=== PATIENT | male | born 1960 | race African-American/Black ===

== ENCOUNTER 2017-02-17 15:35 | Emergency (ER) | payer MEDICAID, OTHER ==
[~2017-02-17] VITALS: Ht 180.3 cm; Wt 95.0 kg
[~2017-02-17 15:35] MED LIST: AMLO10TA80 PO; ASPI-1035 PO; ENAL1TAB10 PO; GABA-531 PO; NAPR-681 PO; PROP10TA10 GT
[2017-02-17] MEDS ORDERED: SODIUM CHLORIDE 0.9% 1,000 ML IV ONE (17:28)
[2017-02-17 17:41] LABS: CLARITY URINE CLEAR (CLEAR); COLOR URINE YELLOW (YELLOW); GLUCOSE URINE NEGATIVE (NEGATIVE); KETONES URINE NEGATIVE (NEGATIVE); LEUKOCYTE ESTERASE URINE NEGATIVE (NEGATIVE); NITRITE URINE NEGATIVE (NEGATIVE); OCCULT BLOOD URINE NEGATIVE (NEGATIVE); PH URINE 5.5 (4.5-8.0); PROTEIN URINE NEGATIVE (NEGATIVE); SPECIFIC GRAVITY URINE 1.009 (1.005-1.030)
[2017-02-17 18:10] LABS: HEMATOCRIT. 48.8 % (42.0-52.0); HEMOGLOBIN. 16.2 g/dL (14.0-18.0); MEAN CORPUSCULAR HEMOGLOBIN 29.2 pg (28.0-32.0); MEAN CORPUSCULAR VOLUME 87.8 fL (80.0-94.0); MEAN PLATELET VOLUME 8.3 fl (7.4-10.4); PLATELET 215 x1000/uL (130-400); RED BLOOD CELL COUNT 5.55 mill/uL (4.7-6.1); RED CELL DISTRIBUTION WIDTH 14.6 % (11.6-14.6)
[2017-02-17 18:15] LABS: CHLORIDE 98 mEq/L (98-107); PROTHROMBIN TIME 10.7 sec
[2017-02-17 18:19] LABS: CARBON DIOXIDE 32 mEq/L (21-32)
[2017-02-17 18:24] LABS: TROPONIN I < 0.02 ng/mL (0.00-0.04)
[2017-02-17 18:30] LABS: PLATELET ESTIMATE NORMAL
[2017-02-17 19:25] VITALS: BP 132/96
[2017-02-17] MEDS ORDERED: ONDANSETRON HCL 4MG/2ML VIAL IV ONE (19:45)
== END 2017-02-17 21:07 | disposition home or self-care (01) ==
LOC: ER 19:13 → CANBEDREQ 21:13
DX: R55 Syncope and collapse (principal); E86.0 Dehydration; R35.0 Frequency of micturition; R06.02 Shortness of breath; E11.9 Type 2 diabetes mellitus without complications; I10 Essential (primary) hypertension
CPT/HCPCS: 36415; 70450; 71010; 80053; 81003; 84484; 85025; 85610; 93005; 96361; 96374; 99285; J2405; J7030

== ENCOUNTER 2019-03-21 12:23 | Emergency (ER) | payer MEDICAID, OTHER ==
[~2019-03-21] VITALS: Ht 177.8 cm; Wt 90.0 kg
[~2019-03-21 12:23] MED LIST changes: -ASPI-1035 PO; +ASPI-1393 PO
[2019-03-21] MEDS ORDERED: SODIUM CHLORIDE 0.9% 1,000 ML IV ONE (12:44)
[2019-03-21 13:22] LABS: HEMATOCRIT. 49.1 % (42.0-52.0); HEMOGLOBIN. 16.3 g/dL (14.0-18.0); MEAN CORPUSCULAR HEMOGLOBIN 29.7 pg (28.0-32.0); MEAN CORPUSCULAR VOLUME 89.6 fL (80.0-94.0); MEAN PLATELET VOLUME 8.4 fl (7.4-10.4); PLATELET 224 x1000/uL (130-400); RED BLOOD CELL COUNT 5.49 mill/uL (4.7-6.1); RED CELL DISTRIBUTION WIDTH 14.7 % (11.6-14.6)
[2019-03-21 13:33] LABS: ETHANOL BLOOD < 10 mg/dL
[2019-03-21 13:43] LABS: CHLORIDE 103 mEq/L (98-107)
[2019-03-21 13:47] LABS: PLATELET ESTIMATE NORMAL
[2019-03-21] MEDS ORDERED: ASPIRIN 325MG EC TABLET PO ONE (15:15)
[2019-03-21 15:28] LABS: CLARITY URINE CLEAR (CLEAR); COLOR URINE YELLOW (YELLOW); KETONES URINE NEGATIVE (NEGATIVE); LEUKOCYTE ESTERASE URINE NEGATIVE (NEGATIVE); NITRITE URINE NEGATIVE (NEGATIVE); OCCULT BLOOD URINE NEGATIVE (NEGATIVE); PROTEIN URINE NEGATIVE (NEGATIVE); SPECIFIC GRAVITY URINE 1.011 (1.005-1.030)
[2019-03-21 17:00] VITALS: BP 129/70
== END 2019-03-21 18:06 | disposition short-term general hospital (02) ==
LOC: ER 12:23 → CANBEDREQ 16:25 → ER 18:06
DX: R55 Syncope and collapse (principal); E78.00 Pure hypercholesterolemia, unspecified; I10 Essential (primary) hypertension; E11.9 Type 2 diabetes mellitus without complications; Z79.82 Long term (current) use of aspirin
CPT/HCPCS: 36415; 71045; 80053; 80320; 81003; 83880; 84484; 85025; 93005; 96360; 99285; J7030; G0480

== ENCOUNTER 2019-08-31 12:06 | Emergency (ER) | payer MEDICARE, MEDICAID ==
[~2019-08-31] VITALS: Ht 180.3 cm; Wt 112.0 kg
[2019-08-31 15:15] VITALS: BP 148/78
== END 2019-08-31 15:15 | disposition home or self-care (01) ==
LOC: ER 12:06
DX: S39.012A Strain of muscle, fascia and tendon of lower back, initial encounter (principal); X58.XXXA Exposure to other specified factors, initial encounter; Y93.89 Activity, other specified; Y92.89 Other specified places as the place of occurrence of the external cause; Y99.8 Other external cause status; E11.40 Type 2 diabetes mellitus with diabetic neuropathy, unspecified; E78.00 Pure hypercholesterolemia, unspecified; I10 Essential (primary) hypertension; Z90.49 Acquired absence of other specified parts of digestive tract; Z98.890 Other specified postprocedural states; Z87.19 Personal history of other diseases of the digestive system; Z79.82 Long term (current) use of aspirin; Z79.899 Other long term (current) drug therapy
CPT/HCPCS: 99282

== ENCOUNTER 2019-10-22 03:08 | Inpatient (IN) | payer OTHER ==
[~2019-10-22] VITALS: Ht 180.3 cm; Wt 107.5 kg
[~2019-10-22 03:08] MED LIST changes: -ASPI-1393 PO; +ASPI-1497 PO; -PROP10TA10 GT; +PROP10TA10 PO
[2019-10-22] MEDS ORDERED: ONDANSETRON HCL 4MG/2ML INJ IV STA (03:59)
[2019-10-22] MEDS ORDERED: SODIUM CHLORIDE 0.9% 1,000 ML IV ONE ×2 (03:59→05:20)
[2019-10-22] MEDS ORDERED: MORPHINE SULFATE 4 MG/ML CPJ (NOT FOR IM USE) IV STA (03:59)
[2019-10-22 04:16] LABS: CHLORIDE 104 mEq/L (98-107)
[2019-10-22 04:20] LABS: EOSINOPHILS % 0.5 % (0.0-5.0); HEMATOCRIT. 47.8 % (42.0-52.0); LYMPHOCYTES % 22.6 % (20.0-50.0); MEAN CORPUSCULAR HEMOGLOBIN 29.8 pg (28.0-32.0); MEAN CORPUSCULAR VOLUME 89.4 fL (80.0-94.0); MEAN PLATELET VOLUME 8.7 fl (7.4-10.4); MONOCYTES % 12.7 % (2.0-8.0); NEUTROPHILS % 63.2 % (40.0-76.0); PLATELET 235 x1000/uL (130-400); RED BLOOD CELL COUNT 5.35 mill/uL (4.7-6.1); RED CELL DISTRIBUTION WIDTH 15.3 % (11.6-14.6)
[2019-10-22] MEDS ORDERED: CEFTRIAXONE 1 G PREMIX 50 ML IV ONE (05:30)
[2019-10-22] MEDS ORDERED: AZITHROMYCIN 500 MG in DEXT 5% WATER 250 ML IV ONE (05:30)
[2019-10-22 06:36] LABS: CLARITY URINE CLOUDY (CLEAR); COLOR URINE YELLOW (YELLOW); KETONES URINE TRACE (NEGATIVE); LEUKOCYTE ESTERASE URINE NEGATIVE (NEGATIVE); NITRITE URINE NEGATIVE (NEGATIVE); OCCULT BLOOD URINE NEGATIVE (NEGATIVE); PH URINE 5.5 (4.5-8.0); PROTEIN URINE 1+ (NEGATIVE); SPECIFIC GRAVITY URINE 1.019 (1.005-1.030); UROBILINOGEN URINE 0.2 E.U./dL (0.2-1.0)
[2019-10-22] MEDS ORDERED: MEROPENEM 500MG in NORMAL SALINE 50ML IV SCH (07:30)
[2019-10-22] MEDS ORDERED: VANCOMYCIN 1 G PREMIX 200 ML IV SCH (07:30)
[2019-10-22 13:00] VITALS: BP 100/65
[2019-10-22 14:00] VITALS: BP 113/73
[2019-10-22] MEDS ORDERED: IPRATROPIUM/ALBUTEROL 0.5-3(2.5)MG/3ML NEB HHN PRN (14:00)
[2019-10-22] MEDS ORDERED: HYDROCODONE/ACETAMINOPHEN 5/325MG TABLET PO PRN (14:00)
[2019-10-22] MEDS ORDERED: ONDANSETRON HCL 4MG/2ML INJ IV PRN (14:00)
[2019-10-22] MEDS ORDERED: CLONIDINE 0.1MG TABLET PO PRN (14:00)
[2019-10-22 14:41] LABS: BG BASE EXCESS 1.3 mmol/L (-2.0-2.0); BG DEOXYHEMOGLOBIN 9.6 % (0.0-5.0); BG FRACTION INSPIRED OXYGEN 32; BG METHEMOGLOBIN 0.2 % (0.0-1.5); BG OXYGEN SATURATION 90.3 % (92.0-98.5); BG OXYHEMOGLOBIN 89.2 % (94.0-97.0); BG PCO2 41.7 mmHg (35.0-45.0); BG PH 7.413 (7.350-7.450); BG PO2 58.9 mmHg (75.0-100.0); BG SAMPLE SITE RIGHT BRACHIAL; BG TOTAL HEMOGLOBIN 15.3 g/dL (12.0-18.0); BG VENT MODE NASAL CANNULA
[2019-10-22] MEDS: ACETAMINOPHEN 325MG TABLET PO PRN (15:17)
[2019-10-22] MEDS ORDERED: ENAL10TA MT (15:20)
[2019-10-22] MEDS ORDERED: IBUP-2030 PO (15:20)
[2019-10-22] MEDS ORDERED: OMEP20CA14 MT (15:20)
[2019-10-22] MEDS ORDERED: TAMS-11 PO (15:27)
[2019-10-22] MEDS ORDERED: BACL-141 PO (15:27)
[2019-10-22] MEDS ORDERED: METF-414 PO (15:27)
[2019-10-22] MEDS ORDERED: ATOR40TA70 PO (15:27)
[2019-10-22 16:00] VITALS: BP 103/55
[2019-10-22] MEDS: INSULIN LISPRO 100 UNITS/ML SUBCUT SCH ×2 (17:20→21:00)
[2019-10-22] MEDS ORDERED: DEXTROSE 50% WATER 50ML SYRINGE IV PRN (17:30)
[2019-10-22] MEDS: BLOOD SUGAR DIAGNOSTIC STRIP TEST SCH ×2 (17:39→21:00)
[2019-10-22] MEDS: ENOXAPARIN 30MG/0.3ML SYR SUBCUT SCH (17:49)
[2019-10-22 18:00] VITALS: BP 112/49
[2019-10-22 18:06] LABS: CHLORIDE 107 mEq/L (98-107)
[2019-10-22] MEDS ORDERED: DICL100G31 TP (18:39)
[2019-10-22] MEDS ORDERED: BRIM5DRO EACHEYE (18:39)
[2019-10-22] MEDS ORDERED: LIDO120C7 TP (18:39)
[2019-10-22] MEDS ORDERED: ATOR40TA70 MT (19:01)
[2019-10-22] MEDS ORDERED: SENN-170 MT (19:01)
[2019-10-22] MEDS ORDERED: DOCU-150 MT (19:01)
[2019-10-22 20:00] VITALS: BP 129/74
[2019-10-22 20:10] LABS: CREATINE KINASE 282 IU/L (39-308)
[2019-10-22] MEDS ORDERED: INFLUENZA VIRUS VACCINE(AFLURIA) 0.5ML SYR IM ONE (20:15)
[2019-10-22] MEDS ORDERED: PNEUMOCOCCAL 23-VAL P-SAC VAC 0.5 ML IM ONE (20:15)
[2019-10-22 20:43] LABS: *COCAINE SCREEN URINE NEGATIVE (NEGATIVE); CANNABINOID URINE SCREEN PRESUMTIVE POSITIVE (NEGATIVE); METHADONE URINE SCREEN NEGATIVE (NEGATIVE); OPIATES URINE SCREEN PRESUMTIVE POSITIVE (NEGATIVE); PHENCYCLIDINE URINE SCREEN NEGATIVE (NEGATIVE)
[2019-10-22 20:44] LABS: *AMPHETAMINES SCREEN URINE NEGATIVE (NEGATIVE); *BARBITURATES SCREEN URINE NEGATIVE (NEGATIVE); *BENZODIAZEPINES SCREEN URINE NEGATIVE (NEGATIVE)
[2019-10-22] MEDS ORDERED: VANCOMYCIN 1500MG in DEXTROSE 5% WATER 250ML IV SCH (21:00)
[2019-10-23] VITALS (18 sets, daily range): BP systolic 112–151; BP diastolic 51–91
[2019-10-23] MEDS: ACETAMINOPHEN 325MG TABLET PO PRN ×2 (01:07→15:58)
[2019-10-23 02:12] LABS: CREATINE KINASE 313 IU/L (39-308)
[2019-10-23] MEDS: ENOXAPARIN 30MG/0.3ML SYR SUBCUT SCH ×2 (05:57→18:31)
[2019-10-23] MEDS: BLOOD SUGAR DIAGNOSTIC STRIP TEST SCH ×4 (05:58→21:54)
[2019-10-23] MEDS: INSULIN LISPRO 100 UNITS/ML SUBCUT SCH ×4 (05:59→21:00)
[2019-10-23 06:26] LABS: BASOPHILS % 0.5 % (0.0-2.0); EOSINOPHILS % 0.4 % (0.0-5.0); HEMATOCRIT. 40.2 % (42.0-52.0); HEMOGLOBIN. 13.5 g/dL (14.0-18.0); LYMPHOCYTES % 14.3 % (20.0-50.0); MEAN CORPUSCULAR HEMOGLOBIN 29.9 pg (28.0-32.0); MEAN CORPUSCULAR VOLUME 89.1 fL (80.0-94.0); MEAN PLATELET VOLUME 8.7 fl (7.4-10.4); MONOCYTES % 10.2 % (2.0-8.0); NEUTROPHILS % 74.6 % (40.0-76.0); PLATELET 193 x1000/uL (130-400); RED BLOOD CELL COUNT 4.51 mill/uL (4.7-6.1); RED CELL DISTRIBUTION WIDTH 14.8 % (11.6-14.6)
[2019-10-23 06:32] LABS: CHLORIDE 106 mEq/L (98-107)
[2019-10-23 06:43] LABS: LDL CHOLESTEROL 74 mg/dL (5-100)
[2019-10-23 06:44] LABS: T4 FREE 1.02 ng/dL (0.76-1.46)
[2019-10-23 06:45] LABS: HDL CHOLESTEROL 33 mg/dL (40-59)
[2019-10-23] MEDS ORDERED: REGADENOSON 0.4 MG/5 ML IV SCH (07:00)
[2019-10-23 07:09] LABS: VITAMIN B12 SERUM 787 pg/mL (211-911)
[2019-10-23] MEDS ORDERED: POTASSIUM CHLORIDE INJ 30 MEQ in DEXT 5% WATER 250 ML IV SCH (10:00)
[2019-10-23] MEDS: VANCOMYCIN 1500MG in DEXTROSE 5% WATER 250ML IV SCH ×2 (10:12→21:44)
[2019-10-23] MEDS ORDERED: SODIUM CHLORIDE 0.45% 1,000 ML IV ONE (12:15)
[2019-10-23] MEDS ORDERED: IOHEXOL-350 100 ML BOTTLE ONE (14:45)
[2019-10-23] MEDS: AMLODIPINE 5MG TABLET PO SCH (15:52)
[2019-10-23] MEDS ORDERED: MEROPENEM 500 MG in SODIUM CHLORIDE 0.9% 50 ML IV SCH (21:30)
[2019-10-24] VITALS (17 sets, daily range): BP systolic 128–158; BP diastolic 64–90
[2019-10-24] MEDS: MEROPENEM 500 MG in SODIUM CHLORIDE 0.9% 50 ML IV SCH ×4 (00:05→22:21)
[2019-10-24] MEDS: AMLODIPINE 5MG TABLET PO SCH ×3 (00:05→21:11)
[2019-10-24] MEDS: ENOXAPARIN 30MG/0.3ML SYR SUBCUT SCH ×2 (06:32→17:38)
[2019-10-24 06:48] LABS: CHLORIDE 103 mEq/L (98-107)
[2019-10-24 06:58] LABS: BASOPHILS % 0.5 % (0.0-2.0); EOSINOPHILS % 0.7 % (0.0-5.0); HEMATOCRIT. 43.8 % (42.0-52.0); HEMOGLOBIN. 14.2 g/dL (14.0-18.0); LYMPHOCYTES % 18.6 % (20.0-50.0); MEAN CORPUSCULAR HEMOGLOBIN 29.2 pg (28.0-32.0); MEAN CORPUSCULAR VOLUME 89.9 fL (80.0-94.0); MONOCYTES % 13.4 % (2.0-8.0); NEUTROPHILS % 66.8 % (40.0-76.0); PLATELET 201 x1000/uL (130-400); RED BLOOD CELL COUNT 4.87 mill/uL (4.7-6.1)
[2019-10-24] MEDS: BLOOD SUGAR DIAGNOSTIC STRIP TEST SCH ×4 (07:08→21:11)
[2019-10-24] MEDS: INSULIN LISPRO 100 UNITS/ML SUBCUT SCH ×4 (07:09→21:00)
[2019-10-24] MEDS: ACETAMINOPHEN 325MG TABLET PO PRN ×2 (08:14→17:44)
[2019-10-24] MEDS: VANCOMYCIN 1500MG in DEXTROSE 5% WATER 250ML IV SCH (10:00)
[2019-10-24] MEDS: VANCOMYCIN 1250MG in DEXTROSE 5% WATER 250ML IV SCH (17:38)
[2019-10-25] VITALS (14 sets, daily range): BP systolic 125–194; BP diastolic 70–92
[2019-10-25] MEDS: VANCOMYCIN 1250MG in DEXTROSE 5% WATER 250ML IV SCH ×2 (01:40→10:16)
[2019-10-25] MEDS: ENOXAPARIN 30MG/0.3ML SYR SUBCUT SCH ×2 (05:33→17:37)
[2019-10-25] MEDS: MEROPENEM 500 MG in SODIUM CHLORIDE 0.9% 50 ML IV SCH ×2 (06:29→14:36)
[2019-10-25] MEDS: BLOOD SUGAR DIAGNOSTIC STRIP TEST SCH ×4 (06:29→21:00)
[2019-10-25] MEDS: INSULIN LISPRO 100 UNITS/ML SUBCUT SCH ×4 (06:30→21:00)
[2019-10-25] MEDS: AMLODIPINE 5MG TABLET PO SCH ×2 (07:41→21:55)
[2019-10-25] MEDS: ACETAMINOPHEN 325MG TABLET PO PRN (07:45)
[2019-10-25 11:43] LABS: BG BASE EXCESS 0.8 mmol/L (-2.0-2.0); BG CARBOXYHEMOGLOBIN 0.8 % (0.5-1.5); BG DEOXYHEMOGLOBIN 10.4 % (0.0-5.0); BG FRACTION INSPIRED OXYGEN 21; BG HCO3 ACT 24.4 mmol/L (22.0-26.0); BG METHEMOGLOBIN 0.1 % (0.0-1.5); BG OXYGEN SATURATION 89.5 % (92.0-98.5); BG OXYHEMOGLOBIN 88.7 % (94.0-97.0); BG PH 7.449 (7.350-7.450); BG PO2 56.2 mmHg (75.0-100.0); BG SAMPLE SITE RIGHT RADIAL; BG TOTAL HEMOGLOBIN 15.5 g/dL (12.0-18.0); BG VENT MODE ROOM AIR
[2019-10-25 12:26] LABS: CHLORIDE 103 mEq/L (98-107)
[2019-10-25] MEDS ORDERED: LACTULOSE 20G/30ML UDC PO NR (15:00)
[2019-10-25 15:06] LABS: BASOPHILS % 0.7 % (0.0-2.0); EOSINOPHILS % 1.5 % (0.0-5.0); HEMATOCRIT. 46.6 % (42.0-52.0); HEMOGLOBIN. 15.6 g/dL (14.0-18.0); LYMPHOCYTES % 18.5 % (20.0-50.0); MEAN CORPUSCULAR HEMOGLOBIN 29.7 pg (28.0-32.0); MEAN CORPUSCULAR VOLUME 88.5 fL (80.0-94.0); MONOCYTES % 13.1 % (2.0-8.0); NEUTROPHILS % 66.2 % (40.0-76.0); PLATELET 253 x1000/uL (130-400); RED BLOOD CELL COUNT 5.26 mill/uL (4.7-6.1); RED CELL DISTRIBUTION WIDTH 14.8 % (11.6-14.6)
[2019-10-25 15:14] LABS: CHLORIDE 103 mEq/L (98-107)
[2019-10-25] MEDS ORDERED: POTASSIUM CHLORIDE 20MEQ TABLET SR PO SCH (16:00)
[2019-10-25] MEDS: VANCOMYCIN 1 G PREMIX 200 ML IV SCH (20:22)
[2019-10-26] VITALS (14 sets, daily range): BP systolic 110–158; BP diastolic 62–91
[2019-10-26] MEDS: MEROPENEM 500 MG in SODIUM CHLORIDE 0.9% 50 ML IV SCH ×3 (00:37→14:35)
[2019-10-26] MEDS: VANCOMYCIN 1 G PREMIX 200 ML IV SCH ×2 (05:24→11:02)
[2019-10-26 06:41] LABS: CHLORIDE 103 mEq/L (98-107)
[2019-10-26] MEDS: ENOXAPARIN 30MG/0.3ML SYR SUBCUT SCH ×2 (06:44→17:18)
[2019-10-26 07:00] LABS: HEMATOCRIT. 43.7 % (42.0-52.0); HEMOGLOBIN. 14.9 g/dL (14.0-18.0); MEAN CORPUSCULAR HEMOGLOBIN 30.1 pg (28.0-32.0); MEAN PLATELET VOLUME 8.5 fl (7.4-10.4); PLATELET 266 x1000/uL (130-400); RED BLOOD CELL COUNT 4.96 mill/uL (4.7-6.1); RED CELL DISTRIBUTION WIDTH 14.4 % (11.6-14.6)
[2019-10-26] MEDS: BLOOD SUGAR DIAGNOSTIC STRIP TEST SCH ×3 (07:01→16:35)
[2019-10-26] MEDS: INSULIN LISPRO 100 UNITS/ML SUBCUT SCH ×3 (07:20→16:35)
[2019-10-26] MEDS: AMLODIPINE 5MG TABLET PO SCH (08:30)
[2019-10-26] MEDS ORDERED: ALBU90AE INH (12:06)
[2019-10-26] MEDS ORDERED: LEVO500T2 MT (12:06)
[2019-10-27 04:58] LABS: PLATELET ESTIMATE NORMAL
== END 2019-10-26 19:49 | disposition home or self-care (01) | DRG 871 ==
LOC: ER 03:08 → 3WST 05:50 → EDBEDREQ 05:53 → EDBEDREQTM 05:53 → EDBEDREQSVC 07:14 → ENRESERV 11:55
PROVIDERS: ADMIT Internal Medicine; ATTEND Internal Medicine
DX: A41.9 Sepsis, unspecified organism (principal); J18.1 Lobar pneumonia, unspecified organism; N17.9 Acute kidney failure, unspecified; E87.2 Acidosis; E11.9 Type 2 diabetes mellitus without complications; N40.0 Benign prostatic hyperplasia without lower urinary tract symptoms; I10 Essential (primary) hypertension; E87.6 Hypokalemia; E78.5 Hyperlipidemia, unspecified; G90.8 Other disorders of autonomic nervous system; R06.03 Acute respiratory distress; R09.02 Hypoxemia; E78.00 Pure hypercholesterolemia, unspecified; Z79.2 Long term (current) use of antibiotics; Z79.84 Long term (current) use of oral hypoglycemic drugs; Z79.82 Long term (current) use of aspirin; Z79.899 Other long term (current) drug therapy; Z90.49 Acquired absence of other specified parts of digestive tract
CPT/HCPCS: 36415; 36600; 71045; 71275; 80048; 80053; 80061; 80202; 80305; 81003; 82375; 82550; 82607; 82805; 82962; 83605; 83735; 83880; 84132; 84439; 84443; 84484; 85025; 85379; 87070; 87449; 87804; 93005; 93306; 93880; 96365; 96368; 96372; 96375; 97116; 97162; 97166; 99285; J0456; J0696; J1650; J2185; J2270; J2405; J3370; J3480; J7030; J7060; Q9967